=== PATIENT | male | born 1985 | race Caucasian/White ===

== ENCOUNTER 2018-04-15 17:10 | Emergency (ER) | payer MEDICAID ==
[~2018-04-15] VITALS: Ht 162.6 cm; Wt 65.8 kg
[2018-04-15 17:16] VITALS: BP 137/84
--- NOTE | 2018-04-15 17:20 | NUR ---
PT AMBULATES TO BED 3
--- NOTE | 2018-04-15 17:25 | NUR ---
32Y/M BIB C/O LEFT SIDED CHEST PAIN 7/10 AND LEFT ARM NUMBNESS X 2 WEEKS, TENDER TO PALPATION. DENIES INJURY. BED DOWN; BEDRAIL UP X 1; ER MD AWARE AND NOTIFIED OF PT STATUS. PMH: DENIES
--- NOTE | 2018-04-15 17:45 | NUR ---
Patient being evaluated by physician at bedside.
[2018-04-15] MEDS ORDERED: IBUPROFEN 600 MG TAB PO ONE (18:00)
[2018-04-15 18:24] VITALS: BP 134/81
--- NOTE | 2018-04-15 18:24 | NUR ---
Patient discharged with v/s stable. Written and verbal after care instructions given and explained. Patient alert, oriented and verbalized understanding of instructions. Ambulatory with steady gait. All questions addressed prior to discharge. ID band removed. Patient advised to follow up with PMD. Rx of motrin and flexeril given. Patient educated on indication of medication including possible reaction and side effects. Opportunity to ask questions provided and answered.
== END 2018-04-15 18:24 | disposition home or self-care (01) ==
LOC: MED 17:10
DX: S29.012A Strain of muscle and tendon of back wall of thorax, initial encounter (principal); S16.1XXA Strain of muscle, fascia and tendon at neck level, initial encounter; Z88.0 Allergy status to penicillin; X50.0XXA Overexertion from strenuous movement or load, initial encounter; Y93.H3 Activity, building and construction; Y92.89 Other specified places as the place of occurrence of the external cause; Y99.8 Other external cause status
CPT/HCPCS: 71045; 93005; 99284; Q0092

== ENCOUNTER 2024-02-19 22:01 | Emergency (ER) | payer MEDICAID, OTHER ==
[~2024-02-19] VITALS: Ht 157.5 cm; Wt 75.3 kg
[2024-02-19 22:32] VITALS: BP 144/92; PULSE 75; RESP 17; TEMP 98.2; O2SAT 97
[2024-02-19] MEDS ORDERED: OFLO5SOL27 RIGHT EAR (23:17)
[2024-02-19 23:37] VITALS: BP 144/92; PULSE 75; RESP 17; TEMP 98.2; O2SAT 97
== END 2024-02-19 23:37 | disposition home or self-care (01) ==
LOC: MED 22:01
DX: H72.91 Unspecified perforation of tympanic membrane, right ear (principal); Z79.899 Other long term (current) drug therapy; Z88.0 Allergy status to penicillin
CPT/HCPCS: 99283